=== PATIENT | male | born 1955 | race Hispanic/Latino ===

== ENCOUNTER 2023-09-30 05:13 | Observation (INO) | payer OTHER ==
[2023-09-29 09:18] LABS: BASOPHILS % 0.6 % (0.0-1.0); EOSINOPHILS # (AUTO) 0.2 (0.0-0.4); HEMATOCRIT 43.1 % (38.2-49.6); HEMOGLOBIN 14.3 g/dL (14.0-18.0); LYMPHOCYTES % 30.3 % (18.0-39.1); MEAN CORPUSCULAR HEMOGLOBIN 30.2 pg (28-32); MEAN CORPUSCULAR HGB CONC 33.2 g/dL (31-35); MEAN CORPUSCULAR VOLUME 90.9 fL (81-99); MONOCYTES # (AUTO) 0.5 (0.2-0.8); MONOCYTES % 7.8 % (4.4-11.3); NEUTROPHILS # (AUTO) 3.9 (2.1-6.9); NEUTROPHILS % 58.2 % (38.7-80.0); PLATELET COUNT 234 x10e3/uL (140-360); RED BLOOD COUNT 4.74 x10e6/uL (4.3-5.7); RED CELL DISTRIBUTION WIDTH 13.1 % (11.7-14.4); WHITE BLOOD COUNT 6.69 x10e3/uL (4.8-10.8)
[~2023-09-30 05:13] MED LIST: LOSARTAN POTASS25 MG PO
[2023-09-30] MEDS: GABAPENTIN 300 MG CAP ONE (06:18)
[2023-09-30] MEDS: CELECOXIB 200 MG CAP ONE (06:18)
[2023-09-30] MEDS: DEXAMETHASONE SOD PHOS 10 MG/1 ML VIAL ONE (06:18)
[2023-09-30] MEDS: LACTATED RINGER'S 1,000 ML ONE (06:19)
[2023-09-30] MEDS: CEFAZOLIN SODIUM 2 GM ONE (06:20)
[2023-09-30] MEDS ORDERED: SODIUM CHLORIDE 0.9% 500ML 500 ML ONE (06:56)
[2023-09-30] MEDS ORDERED: TRANEXAMIC ACID 20 ML ONE (06:56)
[2023-09-30] MEDS ORDERED: Vancomycin IV 500 MG ONE (06:56)
[2023-09-30] MEDS ORDERED: MIDAZOLAM HCL 2 MG/2 ML VIAL ONE (07:18)
[2023-09-30] MEDS ORDERED: FENTANYL CITRATE/PF 100MCG/2 ML INJ ONE ×2 (07:18→13:20)
[2023-09-30] MEDS ORDERED: ROPIVACAINE 246.25 MG, EPINEPHRINE HCL 1:1000 1ML 0.5 MG, CLONIDINE HCL 0.08 MG, KETORO... INJ ONE (07:30)
[2023-09-30] MEDS ORDERED: DIPHENHYDRAMINE HCL INJ 50 MG/ML VIAL IV PRN (09:00)
[2023-09-30] MEDS ORDERED: HYDROCODONE/APAP 5MG-325MG TAB PO PRN (09:00)
[2023-09-30] MEDS ORDERED: CELECOXIB 100 MG CAP PO SCH (09:00)
[2023-09-30] MEDS ORDERED: ASPIRIN 325 MG TAB PO SCH (09:00)
[2023-09-30] MEDS ORDERED: DOCUSATE SODIUM 100 MG CAP PO PRN (09:00)
[2023-09-30] MEDS ORDERED: ONDANSETRON HCL INJ 2MG/ML 2ML 2 MG/ML VIAL IV PRN (09:00)
[2023-09-30] MEDS: HYDROCODONE/APAP 7.5MG-325MG 1 EA TAB PO PRN (09:40)
[2023-09-30] MEDS ORDERED: ASPIRIN81 MG PO (11:11)
[2023-09-30 11:20] VITALS: BP 157/92; PULSE 58; RESP 18; O2SAT 96
[2023-09-30] MEDS ORDERED: ROPIVACAINE 0.5% 5 MG/ML 30 ML SDV ONE (12:55)
[2023-09-30] MEDS ORDERED: DEXAMETHASONE SOD PHOS 10 MG/1 ML VIAL ONE (12:55)
[2023-09-30] MEDS ORDERED: PROPOFOL IV EMULSION 10 MG/ML 20 ML VIAL ONE (13:07)
[2023-09-30] MEDS ORDERED: ONDANSETRON HCL INJ 2MG/ML 2ML 2 MG/ML VIAL ONE (13:07)
[2023-09-30] MEDS ORDERED: DEXAMETHASONE SOD PHOS INJ 4 MG/ML SDV ONE (13:07)
[2023-09-30] MEDS ORDERED: LIDOCAINE HCL 2% LOCAL INJ 5 ML SDV VIAL INJ ONE (13:07)
[2023-10-01] MEDS ORDERED: ACETAMINOPHEN 1000 MG/100 ML IV PRN (09:00)
== END 2023-09-30 11:30 | disposition home health service (06) ==
LOC: OR 05:13 → PACU V 08:50
PROVIDERS: ADMIT Specialist; ATTEND Specialist
DX: M17.12 Unilateral primary osteoarthritis, left knee (principal); I10 Essential (primary) hypertension; E78.5 Hyperlipidemia, unspecified; Z87.891 Personal history of nicotine dependence; Z79.899 Other long term (current) drug therapy; Z79.82 Long term (current) use of aspirin; Z01.810 Encounter for preprocedural cardiovascular examination; Z01.812 Encounter for preprocedural laboratory examination; Z01.818 Encounter for other preprocedural examination
CPT/HCPCS: 27447; 36415; 71046; 73560; 85025; 86850; 86900; 93005; 97116; 97161; C1713 ×3; C1776 ×2; G0378; J0171; J0690; J1100 ×2; J1885; J2001; J2250; J2405; J2704; J2795; J3010; J3370; J7040; J7121

== ENCOUNTER → 2024-06-29 | Day surgery (SDC) | payer OTHER ==
[~2024-06-29] MED LIST changes: +ACETAMINOPHEN 1000 MG/100 ML 100 ML IV ONE; +ACETAMINOPHEN 1000 MG/100 ML IV PRN; +ASPIRIN 325 MG TAB PO SCH; +ASPIRIN81 MG PO; +CEFAZOLIN SODIUM 2 GM ONE; +CELECOXIB 100 MG CAP PO SCH; +DEXAMETHASONE SOD PHOS INJ 4 MG/ML SDV ONE; +DIPHENHYDRAMINE HCL INJ 50 MG/ML VIAL IV PRN; +DOCUSATE SODIUM 100 MG CAP PO PRN; +HYDROCODONE/APAP 5MG-325MG TAB PO PRN; +HYDROCODONE/APAP 7.5MG-325MG 1 EA TAB PO PRN; +LIDOCAINE HCL 2% LOCAL INJ 5 ML SDV VIAL INJ ONE; +ONDANSETRON HCL INJ 2MG/ML 2ML 2 MG/ML VIAL IV PRN; +ONDANSETRON HCL INJ 2MG/ML 2ML 2 MG/ML VIAL ONE; +PROPOFOL IV EMULSION 10 MG/ML 20 ML VIAL ONE; +ROPIVACAINE/EPI/CLONIDINE/KET 50 ML SYRINGE INJ ONE
[2024-06-29] MEDS: LACTATED RINGER'S 1,000 ML ONE (08:49)
[2024-06-29] MEDS: DEXAMETHASONE 10MG/ML PF INJ ONE (08:49)
[2024-06-29] MEDS: GABAPENTIN 300 MG CAP ONE (08:50)
[2024-06-29] MEDS: CELECOXIB 200 MG CAP ONE (08:50)
[2024-06-29 13:08] VITALS: TEMP 97.1
[2024-06-29 15:15] VITALS: BP 130/70; PULSE 70; RESP 14; O2SAT 98
[2024-06-29] MEDS: HYDROCODONE/APAP 7.5MG-325MG 1 EA TAB ONE (15:33)
== END | disposition home health service (06) ==
LOC: OR 07:48
PROVIDERS: ATTEND Specialist
DX: M17.11 Unilateral primary osteoarthritis, right knee (principal); M25.761 Osteophyte, right knee; M06.9 Rheumatoid arthritis, unspecified; Z96.652 Presence of left artificial knee joint; I10 Essential (primary) hypertension; Z01.812 Encounter for preprocedural laboratory examination; Z79.899 Other long term (current) drug therapy; Z68.32 Body mass index [BMI] 32.0-32.9, adult; Z87.891 Personal history of nicotine dependence
CPT/HCPCS: 27447; 73560; 86850; 86900; 97116; 97161; C1713 ×2; C1776; J0131; J0690; J1100; J2003; J2405; J2704; J7121